=== PATIENT | female | born 1950 | race Caucasian/White ===

== ENCOUNTER → 2017-05-03 | Outpatient (REF) | payer BC ==
[2017-05-04 11:15] LABS: CONTROL LINE HPYORI INT CTR LINE PRESENT
== END ==
LOC: M LAB REF 16:14
PROVIDERS: ATTEND Internal Medicine
DX: R10.13 Epigastric pain (principal)

== ENCOUNTER 2025-07-05 16:21 | Observation (INO) | payer BC ==
[~2025-07-05] VITALS: Ht 157.5 cm; Wt 80.4 kg
[2025-07-05 18:00] LABS: BASO # 0.0 10^3/uL (0.0-0.2); BASO % 0.2 % (0.0-1.0); EOS # 0.0 10^3/uL (0.0-0.5); EOS % 0.2 % (0.0-3.0); LYMPH # 1.3 10^3/uL (1.5-5.0); LYMPH % 12.3 % (24.0-44.0); MONO # 0.5 10^3/uL (0.0-0.8); MONO % 4.9 % (2.0-8.0); NEUTROPHILS # 8.9 10^3/uL (1.5-8.5); NEUTROPHILS % 81.9 % (36.0-66.0); PLATELET COUNT, AUTOMATED 358 10^3/uL (150-450)
[2025-07-05] MEDS: MORPHINE 2 MG/ML 1 ML VIAL IV PRN (18:06)
[2025-07-05] MEDS ORDERED: ISOVUE-370 76% 100 ML VIAL As Ordered ONE (18:08)
[2025-07-05 18:22] LABS: ETHYL ALCOHOL (ETHANOL) 0.008 % (0.000-0.010)
[2025-07-05 18:23] LABS: ALT/SGPT 30 U/L (7.0-40); AST/SGOT 26 U/L (<34); INR 0.95
[2025-07-05] MEDS: METHOCARBAMOL 1,000 MG/10 ML VIAL IV ONE (20:23)
[2025-07-05] MEDS: NS (Normal Saline) 0.9% 1,000 ML IV ONE (20:23)
[2025-07-05] MEDS: KETOROLAC 30 MG/ML 1 ML VIAL IV ONE (20:23)
[2025-07-05 20:44] LABS: APPEARANCE, URINE CLEAR (CLEAR); BACTERIA, URINE AUTO NEGATIVE (NEGATIVE); BILIRUBIN, URINE AUTO NEGATIVE (NEGATIVE); BLOOD, URINE BLOOD 1+ (NEGATIVE); GLUCOSE, URINE (UA) AUTO NEGATIVE (NEGATIVE); KETONE, URINE AUTO TRACE mg/dL (NEGATIVE); LEUKOCYTE ESTERASE, URINE AUTO 1+ (NEGATIVE); MUCUS, URINE SMALL (NEGATIVE); NITRITE, URINE AUTO NEGATIVE (NEGATIVE); PROTEIN, URINE AUTO NEGATIVE (NEGATIVE); RBC, URINE AUTO 6 /HPF (0-3); SPECIFIC GRAVITY URINE AUTO 1.057 (1.002-1.035); SQUAMOUS EPITHELIAL CELL UR AU 1 /HPF (0-6); UROBILINOGEN, URINE AUTO 0.2 mg/dL (0.0-2.0); WBC, URINE AUTO 3 /HPF (0-3)
[2025-07-05 21:00] LABS: AMPHETAMINES LEVEL URINE NEGATIVE (NEGATIVE); BARBITURATES URINE NEGATIVE (NEGATIVE); BENZODIAZEPINES URINE NEGATIVE (NEGATIVE); CANNABINOIDS URINE NEGATIVE (NEGATIVE); COCAINE METABOLITE URINE NEGATIVE (NEGATIVE); METHADONE URINE NEGATIVE (NEGATIVE); PHENCYCLIDINE URINE NEGATIVE (NEGATIVE)
[2025-07-05 21:01] LABS: OPIATES URINE POSITIVE (NEGATIVE)
[2025-07-05] MEDS ORDERED: traMADol 50 MG TAB PO PRN (23:40)
[2025-07-05] MEDS ORDERED: ACETAMINOPHEN 325 MG TAB PO PRN (23:40)
[2025-07-05] MEDS ORDERED: IBUPROFEN 400 MG TAB PO PRN (23:40)
[2025-07-06] MEDS: LIDOCAINE 5% OINT 30 GM TUBE TOP STA (00:20)
[2025-07-06] MEDS ORDERED: MULT1TAB7 PO (00:39)
[2025-07-06] MEDS ORDERED: LOSA25TA13 PO (00:39)
[2025-07-06] MEDS ORDERED: HYDR-3490 PO (00:39)
[2025-07-06] MEDS ORDERED: HOME MED LIST COMPLETE! XX SCH (00:40)
[2025-07-06] MEDS: POTASSIUM CHLORIDE 10MEQ SR TABLET PO ONE ×2 (03:00→05:45)
[2025-07-06 03:25] VITALS: BP 172/95; TEMP 98.2; O2SAT 96
[2025-07-06] MEDS ORDERED: KCL 20MEQ IN 100ML SWI (KRUN) 20 MEQ in IV 1 EA IV ONE (03:55)
[2025-07-06] MEDS: KCL 10MEQ/100ML SWI (KRUN) IV SCH (04:24)
[2025-07-06] MEDS: MORPHINE 2 MG/ML 1 ML VIAL IV ONE (04:24)
[2025-07-06] MEDS: METHOCARBAMOL 1,000 MG/10 ML VIAL IM ONE (05:29)
[2025-07-06 07:19] LABS: CALCIUM LEVEL 8.3 MG/DL (8.3-10.6); CARBON DIOXIDE LEVEL 26.0 MMOL/L (20-31); CHLORIDE LEVEL 98.0 MMOL/L (98-107); CREATININE FOR GFR 0.74 MG/DL (0.55-1.30); GLOMERULAR FILTRATION RATE 85.9 (>39); MAGNESIUM LEVEL 1.9 MG/DL (1.8-2.4); POTASSIUM SERUM 3.7 MMOL/L (3.5-5.1); SODIUM LEVEL 134.0 MMOL/L (136-145)
[2025-07-06] MEDS: LIDOCAINE 5% PATCH TD SCH (08:59)
[2025-07-06] MEDS: hydroCHLOROthiazide 25 MG TAB PO SCH (09:01)
[2025-07-06] MEDS: LOSARTAN 25 MG TAB PO SCH (09:01)
[2025-07-06] MEDS: MORPHINE 4 MG/ML 1 ML VIAL IV PRN (09:45)
[2025-07-06 12:00] VITALS: BP 165/74; TEMP 97; O2SAT 97
[2025-07-06 20:39] VITALS: BP 137/73; TEMP 98.3; O2SAT 93
[2025-07-07 03:26] VITALS: BP 169/85; TEMP 98.8; O2SAT 97
[2025-07-07] MEDS: KETOROLAC 30 MG/ML 1 ML VIAL IV ONE (05:03)
[2025-07-07 08:23] LABS: CALCIUM LEVEL 8.4 MG/DL (8.3-10.6); CARBON DIOXIDE LEVEL 27.0 MMOL/L (20-31); CHLORIDE LEVEL 101.0 MMOL/L (98-107); CREATININE FOR GFR 0.84 MG/DL (0.55-1.30); GLOMERULAR FILTRATION RATE 73.8 (>39); MAGNESIUM LEVEL 1.8 MG/DL (1.8-2.4); POTASSIUM SERUM 4.0 MMOL/L (3.5-5.1); SODIUM LEVEL 137.0 MMOL/L (136-145)
[2025-07-07] MEDS: ANALGESIC BALM CRM 3 OZ TOP SCH (09:31)
[2025-07-07 11:38] VITALS: BP 140/79; TEMP 98.3; O2SAT 95
[2025-07-07 13:18] VITALS: BP 113/63; TEMP 98.4; O2SAT 95
[2025-07-07] MEDS ORDERED: PROHANCE 279.3MG/ML 15ML VIAL As Ordered ONE (13:24)
[2025-07-07] MEDS ORDERED: PROHANCE 279.3MG/ML 5ML VIAL As Ordered ONE (13:24)
[2025-07-07] MEDS: ACETAMINOPHEN 325 MG TAB PO SCH (14:20)
[2025-07-07] MEDS: KETOROLAC 30 MG/ML 1 ML VIAL IV SCH (14:21)
[2025-07-07] MEDS: MORPHINE 2 MG/ML 1 ML VIAL IV PRN (15:23)
[2025-07-07 20:33] VITALS: BP 160/81; TEMP 98.2; O2SAT 97
[2025-07-08 04:10] VITALS: BP 157/84; TEMP 97.6; O2SAT 96
[2025-07-08 07:47] LABS: CALCIUM LEVEL 8.6 MG/DL (8.3-10.6); CARBON DIOXIDE LEVEL 28.0 MMOL/L (20-31); CHLORIDE LEVEL 101.0 MMOL/L (98-107); CREATININE FOR GFR 0.77 MG/DL (0.55-1.30); GLOMERULAR FILTRATION RATE 81.9 (>39); MAGNESIUM LEVEL 1.7 MG/DL (1.8-2.4); POTASSIUM SERUM 3.7 MMOL/L (3.5-5.1); SODIUM LEVEL 139.0 MMOL/L (136-145)
[2025-07-08 12:00] VITALS: BP 135/77; TEMP 97.6; O2SAT 91
[2025-07-08] MEDS: DOCUSATE SODIUM 100 MG CAPSULE PO SCH (12:04)
[2025-07-08] MEDS: SENNOSIDES/DOCUSATE SODIUM 8.6 MG/50MG TAB PO SCH (12:04)
[2025-07-08] MEDS: ACETAMINOPHEN 500 MG TAB PO SCH (14:05)
[2025-07-08 20:02] VITALS: BP 153/70; TEMP 97.8; O2SAT 96
[2025-07-09 05:14] VITALS: BP 145/89; TEMP 97.4; O2SAT 95
[2025-07-09 07:39] LABS: CALCIUM LEVEL 8.4 MG/DL (8.3-10.6); CARBON DIOXIDE LEVEL 27.0 MMOL/L (20-31); CHLORIDE LEVEL 102.0 MMOL/L (98-107); CREATININE FOR GFR 0.75 MG/DL (0.55-1.30); GLOMERULAR FILTRATION RATE 84.5 (>39); MAGNESIUM LEVEL 1.7 MG/DL (1.8-2.4); POTASSIUM SERUM 3.7 MMOL/L (3.5-5.1); SODIUM LEVEL 138.0 MMOL/L (136-145)
[2025-07-09 12:00] VITALS: BP 124/80; TEMP 98.1; O2SAT 97
[2025-07-09] MEDS: ENOXAPARIN 40 MG/0.4 ML SYRINGE (J1650 PER 10MG) SC SCH (12:27)
[2025-07-09 20:40] VITALS: BP 137/82; TEMP 97.6; O2SAT 96
[2025-07-10 04:52] VITALS: BP 160/88; TEMP 97.8; O2SAT 95
[2025-07-10] MEDS ORDERED: FLEET ENEMA PR PRN (07:35)
[2025-07-10 07:42] LABS: CALCIUM LEVEL 8.4 MG/DL (8.3-10.6); CARBON DIOXIDE LEVEL 27.0 MMOL/L (20-31); CHLORIDE LEVEL 100.0 MMOL/L (98-107); CREATININE FOR GFR 0.81 MG/DL (0.55-1.30); GLOMERULAR FILTRATION RATE 77.1 (>39); MAGNESIUM LEVEL 1.8 MG/DL (1.8-2.4); POTASSIUM SERUM 3.5 MMOL/L (3.5-5.1); SODIUM LEVEL 138.0 MMOL/L (136-145)
[2025-07-10] MEDS: MAGNESIUM CITRATE 300 ML BTL PO ONE (10:04)
[2025-07-10] MEDS: POTASSIUM CHLORIDE 10MEQ SR TABLET PO ONE (10:04)
[2025-07-10] MEDS: BISACODYL 10 MG SUPP PR SCH (10:05)
[2025-07-10] MEDS: LACTULOSE 20 GM/30 ML SYRUP UDC PR ONE (11:26)
[2025-07-10 11:57] VITALS: BP 131/87; TEMP 98; O2SAT 96
[2025-07-10 20:08] VITALS: BP 147/95; TEMP 97.9; O2SAT 97
[2025-07-11 04:18] VITALS: BP 139/81; TEMP 98.7; O2SAT 96
[2025-07-11 07:26] LABS: CALCIUM LEVEL 8.3 MG/DL (8.3-10.6); CARBON DIOXIDE LEVEL 28.0 MMOL/L (20-31); CHLORIDE LEVEL 102.0 MMOL/L (98-107); CREATININE FOR GFR 0.81 MG/DL (0.55-1.30); GLOMERULAR FILTRATION RATE 77.1 (>39); MAGNESIUM LEVEL 2.3 MG/DL (1.8-2.4); POTASSIUM SERUM 4.1 MMOL/L (3.5-5.1); SODIUM LEVEL 139.0 MMOL/L (136-145)
[2025-07-11 08:00] VITALS: BP 169/102; TEMP 98; O2SAT 97
[2025-07-11 08:55] VITALS: BP 169/102
[2025-07-11] MEDS ORDERED: BISA10SU PR (10:42)
[2025-07-11] MEDS ORDERED: PERC7.5T11 PO (10:42)
[2025-07-11] MEDS ORDERED: LIDO5TD TD (10:42)
[2025-07-11] MEDS ORDERED: METH85CR11 TOP (10:42)
[2025-07-11] MEDS ORDERED: METH-1164 PO (10:42)
== END 2025-07-11 12:48 | disposition home health service (06) ==
LOC: M ED 16:21 → M ED INP 16:22 → EEVIPCON 16:22 → M MSPAV 07-06 03:16
PROVIDERS: ADMIT Internal Medicine; ATTEND Student in an Organized Health Care Education/Training Program
DX: R29.6 Repeated falls (principal); M54.50 Low back pain, unspecified; G89.11 Acute pain due to trauma; W00.1XXA Fall from stairs and steps due to ice and snow, initial encounter; Y92.511 Restaurant or cafe as the place of occurrence of the external cause; Y93.9 Activity, unspecified; Y99.8 Other external cause status; R33.9 Retention of urine, unspecified; E87.6 Hypokalemia; K59.00 Constipation, unspecified; M51.379 Other intervertebral disc degeneration, lumbosacral region without mention of lumbar back pain or lower extremity pain; M51.26 Other intervertebral disc displacement, lumbar region; D35.02 Benign neoplasm of left adrenal gland; I10 Essential (primary) hypertension; K21.9 Gastro-esophageal reflux disease without esophagitis; F17.200 Nicotine dependence, unspecified, uncomplicated; Z79.899 Other long term (current) drug therapy; Z66 Do not resuscitate
CPT/HCPCS: 36415; 70450; 71260; 72125; 72158; 74177; 80047; 80048; 80076; 80307; 81001; 82077; 82150; 83605; 83690; 83735; 85025; 85610; 85730; 86850; 86900; 86901; 93005; 93041; 94760; 96361; 96372; 96374; 96375; 96376; 97116; 97161; 97165; 97530; 97535; 99285; A9579; J1650; J1885; J2800; Q9967